=== PATIENT | female | born 1945 | race Caucasian/White ===

== ENCOUNTER 2023-11-23 20:00 | Emergency (ER) | payer OTHER, SELFPAY ==
[2023-11-23 20:02] VITALS: BP 160/86
[2023-11-23 20:22] VITALS: BP 176/92
[2023-11-23 21:00] VITALS: BP 145/73
--- NOTE | 2023-11-23 22:01 | ED.GENMED ---
History of Present Illness
General
Chief Complaint: Head Injury
Source: patient and family
Exam Limitations: none
Time Seen by Provider: 11/23/23 20:44
Nursing documentation reviewed up to this point in time: agreed with
Travel History
Have you had any contact with someone who has COVID-19?: No
Do you have any symptoms of coronavirus? Fever > 100 degrees, chills, cough, shortness of breath, sore throat, loss of taste or smell, muscle aches, or headache?: No
History of Present Illness
History of Present Illness:
78-year-old female past medical history of stroke A-fib currently on Eliquis presenting to the emergency department after hitting the back of her head standing up quickly on the refrigerator door. Did not lose consciousness otherwise feels well.
Denies numbness weakness or additional symptoms otherwise.
Review of Systems
Review of Systems
Allergies reviewed?: Yes
All Other Systems: ROS reviewed and negative except as documented in HPI and ROS
Phy Exam
Physical Exam
Physical Exam:
GENERAL: Alert , in no apparent distress
EYE: pupils equal and reactive
NECK: Supple, no significant adenopathy.
ENT: o/p clr, mmm.
CARDIAC: Regular rate and rhythm .
LUNGS: Clear breath sounds bilaterally, no acute respiratory distress, no wheezes/rales/rhonchi
ABDOMEN: Soft, without focal tenderness, no r/g, no cvat
NEUROLOGICAL: Alert and oriented, no focal neuro deficits 5 out of 5 upper and lower extremity strength normal sensation with palpating bilaterally normal finger-nose and [id number] no pronator drift
SKIN: Warm and dry, skin intact.
MUSCULOSKELETAL: No edema, well perfused.
PSYCH: Normal and appropriate interaction.
Course
Orders/Labs/Results
Orders:
Orders
11/23/23 20:45
CT Cervical Spine W/o Iv Contr Urgent
Comment:
Reason For Exam: fall hit back pf head
CT Head W/o Iv Contrast Urgent
Comment:
Reason For Exam: fall hit head
Vital Signs
Initial and Last Documented VS:
Initial Vital Signs
Temp Pulse Resp BP Pulse Ox
98.1 F 64 18 160/86 97
11/23/23 20:02 11/23/23 20:02 11/23/23 20:02 11/23/23 20:02 11/23/23 20:02
Last Documented Vital Signs
Temp Pulse Resp BP Pulse Ox
98.1 F 64 18 145/73 100
11/23/23 20:02 11/23/23 20:02 11/23/23 20:02 11/23/23 21:00 11/23/23 21:02
MDM/Problems Addressed
MDM/Problems Addressed:
78-year-old female presenting to the emergency department today with concerns of hitting the back of her head just prior to arrival. Patient is on Eliquis for A-fib. Denies additional concerns normal neurologic evaluation here able to walk in with
steady gait no vomiting. Initial blood pressure slightly elevated but improving without specific treatment other vital signs are normal. CT scan of the head and neck without emergent findings. Patient appears stable for discharge no emergent
findings at this time.
*Critical Care Note
Total Time (30-74mins, 75-104mins- exclusive of procedures): Not Applicable
ED Attending Note
-
Portions of this chart may have been created with voice recognition software.� Occasional wrong word or��sound alike� substitutions may have occurred due to the inherent limitations of voice recognition software.
Discharge Plan
Departure
Patient Disposition: Home (Routine Discharge)
Date of Disposition: 11/23/23
Time of Disposition: 22:03
Patient with high blood pressure during this ER visit?: No
Condition: Good
Covid-19: Not Applicable
Discharge Problem:
Minor closed head injury
Instructions: Minor Head Injury (DC)
Referrals:
UNKNOWN - PT DOES,NOT KNOW [Family Provider] -
Activity Restrictions/Additional Instructions:
You came to the emergency department today after hitting her head. Here you had a head CT and neck CT without emergent findings. Please rest and return for any worsening, new or concerning symptoms.
Interventions
Interventions:
*Risk Screen - Suicide Last Done: 11/23/23 20:02
*General Assessment Last Done: 11/23/23 20:02
*ED COVID-19 Vaccine History Last Done: 11/23/23 20:09
ED- Neurological Assessment Last Done: 11/23/23 21:13
ED-Skin Assessment Last Done: 11/23/23 21:13
Discharge Date and Time
Print Language: PASHTO
[2023-11-23 22:14] VITALS: BP 164/86
[2023-11-23 22:18] VITALS: BP 164/86
== END 2023-11-23 22:19 | disposition home or self-care (01) ==
LOC: EMR 20:00
PROVIDERS: EMERGENCY PHYSICIAN Emergency Medicine
DX: S09.90XA Unspecified injury of head, initial encounter (principal); S00.03XA Contusion of scalp, initial encounter; W22.09XA Striking against other stationary object, initial encounter; W19.XXXA Unspecified fall, initial encounter; I48.91 Unspecified atrial fibrillation; I10 Essential (primary) hypertension; M19.90 Unspecified osteoarthritis, unspecified site; Z79.01 Long term (current) use of anticoagulants; Z86.73 Personal history of transient ischemic attack (TIA), and cerebral infarction without residual deficits
CPT/HCPCS: 99284; 70450; 72125

== ENCOUNTER 2024-01-27 16:19 | Emergency (ER) | payer OTHER, SELFPAY ==
[2024-01-27 16:29] VITALS: BP 149/79
[2024-01-27 17:11] VITALS: BMI 18.6
[2024-01-27 17:26] LABS: % Basophils 0.2 % (0-2); % Eosinophils 0.6 % (0-6); % Immature Granulocytes 0.2 % (0-0.5); % Lymphocytes 20.6 % (20.5-51.1); % Monocytes 5.8 % (1.7-9.3); % Neutrophils 72.6 % (42.2-75.2); Absolute Monocytes 0.3 10^3/uL (0.1-0.6); Absolute Neutrophils 3.5 10^3/uL (1.4-6.5); Hematocrit 39.5 % (37.0-47.0); Hemoglobin 13.4 g/dL (12.0-16.0); Mean Corp Hgb Conc. 33.9 g/dL (33.0-37.0); Mean Corpuscular Hgb 32.7 pg (27.0-31.0); Mean Corpuscular Volume 96.3 fL (81.0-99.0); Mean Platelet Volume 9.6 fL (7.4-10.4); Nucleated Red Blood Cells % 0 %; Platelet Count 212 10^3/uL (130-400); White Blood Cell Count 4.8 10^3/uL (4.8-10.8)
[2024-01-27 17:39] VITALS: BP 175/78
[2024-01-27 17:43] LABS: Blood Urea Nitrogen 14 mg/dl (7-17); Carbon Dioxide 28 mmol/L (22-30); Chloride 101 mmol/L (98-107); Estimated Creatinine Clearance 44 ml/min; Glucose 95 mg/dl (70-99); Potassium 3.7 mmol/L (3.5-5.1); Sodium 138 mmol/L (135-145); eGFR > 60.00
[2024-01-27 18:00] VITALS: BP 150/71
[2024-01-27 19:00] VITALS: BP 158/81
--- NOTE | 2024-01-27 19:06 | ED.GENMED ---
History of Present Illness
General
Chief Complaint: Fall
Source: patient and family
Exam Limitations: none
Time Seen by Provider: 01/27/24 17:03
History of Present Illness
History of Present Illness:
78-year-old female tripped as she was bending over to stand up caught her leg hitting her head on the wall and hitting her right ribs. No LOC. Patient is anticoagulated. Minimal headache. Mild right lateral chest pain no abdominal pain no nausea
vomiting no neck pain no other complaints patient is anticoagulated
Past History
Past History
ED Past Medical History: Arrthythmia and CVA
ED Past Surgical History: Cardiac (Loop recorder) and Other (Dental)
Review of Systems
Review of Systems
All Other Systems: Not applicable
Respiratory: Reports no symptoms
Phy Exam
Physical Exam
Physical Exam:
TRAUMA EXAM:
VITAL SIGNS: Vital signs reviewed, cooperative
DISTRESS: No active disease
EYES: Pupils reactive, no orbital trauma
NOSE: No deformity or epistaxis
FACE AND SCALP: No scalp or facial trauma, external canals no blood
NECK: Supple nontender
BACK: Back nontender, pelvis stable to compression
RESPIRATORY: No distress, breath sounds normal, very minimal tenderness right lateral chest wall with superficial abrasion
CARDIAC: No murmur, pulses equal and strong
ABDOMEN: Soft nontender bowel sounds normal
SKIN: Skin intact no bleeding, color normal
EXTREMITIES: Nontender
NEUROLOGICAL: Alert, oriented, no motor deficits
PSYCH: Mood affect normal
Course
Orders/Labs/Results
Orders:
Orders
01/27/24 16:35
CT Head W/o Iv Contrast Urgent
Comment:
Reason For Exam: fall, hit head on Eliquis
Cervical Spine wo Contrast CT [CT Cervical Spine W/o Iv Contr] Urgent
Comment:
Reason For Exam: fall, hit head on Eliquis
01/27/24 17:10
Ribs, Right 3 View W/PA Chest [CR Ribs-right 3 Vw W/pa Chest*] Urgent
Comment:
Reason For Exam: trauma
01/27/24 17:14
Basic Metabolic Panel Urgent
Complete Blood Count/With Diff Urgent
Abnormal Lab Results
01/27/24
17:14
RBC 4.10 L 10^6/uL
(4.20-5.40)
MCH 32.7 H pg
(27.0-31.0)
Absolute Lymphs (auto) 1.0 L 10^3/uL
(1.2-3.4)
01/27/24 17:14
01/27/24 17:14
Vital Signs
Initial and Last Documented VS:
Initial Vital Signs
Temp Pulse Resp BP Pulse Ox
98.3 F 79 18 149/79 97
01/27/24 16:29 01/27/24 16:29 01/27/24 16:29 01/27/24 16:29 01/27/24 16:29
Last Documented Vital Signs
Temp Pulse Resp BP Pulse Ox
98.3 F 65 17 158/81 96
01/27/24 16:29 01/27/24 19:00 01/27/24 19:00 01/27/24 19:00 01/27/24 19:00
MDM/Problems Addressed
Differential Diagnosis Includes:
Patient is not describing a syncopal episode. Chest wall trauma. Head injury on Eliquis. All stable. Discharged to follow-up
*Radiology
Radiology exam reviewed: preliminary read by ED provider (Negative rib series) and radiology read reviewed (Negative CTs except for a nodule left upper lobe)
*Pulse Oximetry
Patient hypoxic: no
*Ammonia Worker Interpretation
Rate: normal
Interpretation: normal
Heart Rate: 70
Rhythm: sinus
*Critical Care Note
Total Time (30-74mins, 75-104mins- exclusive of procedures): Not Applicable
Update Note
Update Note:
Patient is remained medically stable and nontoxic. Benign abdomen. Neurologically stable. Discharged to follow-up. She was made aware of this nodule which she did does already know about
ED Attending Note
-
Portions of this chart may have been created with voice recognition software.� Occasional wrong word or��sound alike� substitutions may have occurred due to the inherent limitations of voice recognition software.
Discharge Plan
Departure
Patient Disposition: Home (Routine Discharge)
Date of Disposition: 01/27/24
Time of Disposition: 19:10
Patient with high blood pressure during this ER visit?: Yes
Discharge Problem:
Fall/head injury, Anticoagulated, Blunt chest trauma, Pulmonary nodule
Instructions: Head Injury in Adults (DC), Blunt Chest Trauma (DC), BLOOD PRESSURE
Referrals:
Sandra Alvarez MD [Family Provider] - Follow up in 2-3 days
Activity Restrictions/Additional Instructions:
The radiologist recommended a PET scan for follow-up for the nodule in the left upper lobe of your lung
Interventions
Interventions:
ED- Fall Risk Assessment Last Done: 01/27/24 17:07
ED-Musculoskeletal Assessment Last Done: 01/27/24 17:07
ED- Neurological Assessment Last Done: 01/27/24 17:07
ED-Skin Assessment Last Done: 01/27/24 17:07
Discharge Date and Time
Print Language: BULGARIAN
== END 2024-01-27 19:45 | disposition home or self-care (01) ==
LOC: EMR 16:19
PROVIDERS: EMERGENCY PHYSICIAN Emergency Medicine; FAMILY PHYSICIAN Family Medicine
DX: S09.90XA Unspecified injury of head, initial encounter (principal); S29.9XXA Unspecified injury of thorax, initial encounter; R91.1 Solitary pulmonary nodule; D68.9 Coagulation defect, unspecified; W22.01XA Walked into wall, initial encounter; Z79.01 Long term (current) use of anticoagulants; Z86.73 Personal history of transient ischemic attack (TIA), and cerebral infarction without residual deficits
CPT/HCPCS: 99284; 70450; 71101; 72125; 80048; 85025

== ENCOUNTER → 2024-03-21 14:40 | Outpatient (REF) | payer OTHER, SELFPAY | LOC: RAD 14:40 | PROVIDERS: ATTENDING PHYSICIAN Nurse Practitioner Adult Health | DX: R91.8 Other nonspecific abnormal finding of lung field (principal) | CPT/HCPCS: 71260; Q9967 ==

== ENCOUNTER → 2024-04-18 11:43 | Outpatient (REF) | payer OTHER, SELFPAY | LOC: PET 11:43 | PROVIDERS: ATTENDING PHYSICIAN Internal Medicine Critical Care Medicine | DX: R91.8 Other nonspecific abnormal finding of lung field (principal) | CPT/HCPCS: 78815; A9552 ==

== ENCOUNTER → 2024-10-05 11:33 | Outpatient (REF) | payer OTHER, SELFPAY | LOC: RAD 11:33 | PROVIDERS: ATTENDING PHYSICIAN Internal Medicine Critical Care Medicine; FAMILY PHYSICIAN Nurse Practitioner Adult Health | DX: R91.1 Solitary pulmonary nodule (principal) | CPT/HCPCS: 71250 ==